=== PATIENT | male | born 1960 | race Two or more races ===

== ENCOUNTER 2025-05-09 09:31 | Outpatient (REF) | payer OTHER, SELFPAY ==
--- NOTE | ~2025-05-09 | XR_ITS ---
EXAMINATION: XR FOOT, RIGHT CLINICAL INFORMATION: M79.671 - Pain in right foot COMPARISON: None available. TECHNIQUE: AP, lateral, and oblique views of the right foot. FINDINGS: No fracture, dislocation, or suspicious bone lesion. There is normal alignment. Joint spaces appear normal. There is a normal plantar arch. The hindfoot and midfoot appear normal. Soft tissues demonstrate diffuse vascular calcifications. XR/XR foot RT min 3V IMPRESSION: 1. No acute bony abnormalities. 2. Diffuse soft tissue vascular calcifications. Electronically signed by: Nile Vences MD 05/09/2025 10:50 AM EDT
--- OUTSIDE RECORDS SUMMARY | 2025-05-09 12:07 | XMS_ITS | Clinical Summary ---
Author Organization [facility] Address [address] [place] [address] Care Team Providers Care Management Technician Name Role Phone Rosanne Corley PA-C Primary Care Provider Source Comments PLEASE NOTE, if this patient is a minor, it may be UNLAWFUL to discuss sensitive information that is contained in these records (such as FAMILY PLANNING, MENTAL HEALTH or SUBSTANCE ABUSE) with the minor patient's parent or other person without the patient's specific authorization.[facility] Allergies No known active allergies Medications diclofenac sodium (VOLTAREN) 1 % gelIndications:Nicolette sadie osteoarthritis involving multiple joints Apply 2 g topically 2 (two) times daily 100 g 3 11/22/19 23 Active ezetimibe (ZETIA) 10 mg tabletIndications: Coronary artery disease involving lower sioux coronary artery of lower si[place] heart without angina pectoris Take 10 mg by mouth once daily 02/28/20 23 Active alum-mag hydroxide-simeth (MYLANTA) 200-200-20 mg/5 mL suspension Take 10 mL by mouth every 6 (six) hours as needed for indigestion 400 mL 1 10/04/19 24 Active fluticasone furoate-vilanteroL (BREO ELLIPTA) 200-25 mcg/dose Inhale 1 Puff into the lungs daily 60 Each 3 10/04/19 24 Active clopidogreL (PLAVIX) 75 mg tabletIndications: Coronary artery disease involving lower sioux coronary artery of lower [place] heart without angina pectoris TAKE 1 TABLET BY MOUTH EVERY NIGHT AT BEDTIME 90 Tablet 3 02/08/20 24 Active lactulose (CHRONULAC) 10 gram/15 mL solutionIndication s:Other cirrhosis of liver Take 30 mL by mouth once daily 400 mL 4 03/15/20 24 Active sennosides-docusat e sodium (ROSA MARIA-COLACE) 8.6-50 mg per tabletIndications: Functional constipation Take 2 Tablets by mouth nightly at bedtime 180 Tablet 2 03/15/20 24 Active nitroglycerin (NITROSTAT) 0.4 mg SL tabletIndications: Coronary artery disease involving lower sioux coronary artery of lower si[place] heart without angina pectoris Place 1 Tablet under the tongue every 5 (five) minutes as needed for chest pain 100 Tablet 4 03/15/20 24 Active rosuvastatin (CRESTOR) 20 mg tabletIndications: Coronary artery disease involving lower sioux coronary artery of lower si[place] heart without angina pectoris,NSTEMI (non-ST elevated myocardial infarction) Take 1 Tablet by mouth nightly at bedtime 90 Tablet 3 03/15/20 24 Active furosemide (LASIX) 20 mg tabletIndications: Other cirrhosis of liver TAKE 1 TABLET BY MOUTH EVERY DAY 90 Tablet 2 06/12/20 24 Active metFORMIN (GLUCOPHAGE) 500 mg tabletIndications: Type 2 diabetes mellitus without complication, without long-term current use of insulin TAKE 1 TABLET BY MOUTH EVERY DAY WITH BREAKFAST 90 Tablet 1 08/02/19 25 Active metoprolol succinate XL (TOPROL-XL) 25 mg 24 hr tabletIndications: NSTEMI (non-ST elevated myocardial infarction),[place] ry artery disease involving lower sioux coronary artery of lower si[place] heart without angina pectoris TAKE 1 TABLET BY MOUTH EVERY DAY. DISCONTINUE COREG 90 Tablet 3 08/02/19 25 Active spironolactone (ALDACTONE) 25 mg tabletIndications: Other cirrhosis of liver,NSTEMI (non-ST elevated myocardial infarction) Take 1 Tablet by mouth once daily 90 Tablet 3 08/30/19 25 Active alcohol swabsIndications:T ype 2 diabetes mellitus without complication, without long-term current use of insulin Use qd, dx E11.9 50 Each 08/30/19 25 Active lancets (FREESTYLE LANCETS) 28 gaugeIndications:T ype 2 diabetes mellitus without complication, without long-term current use of insulin Freestyle lite lancets, use QD, dx E11.9 50 Each 08/30/19 25 Active blood sugar diagnostic stripsIndications: Type 2 diabetes mellitus without complication, without long-term current use of insulin 1 Each daily. Freestyle lite strips use QD, dx E11.9 50 Each 08/30/19 25 Active blood-glucose meter monitoring kitIndications:Typ e 2 diabetes mellitus without complication, without long-term current use of insulin 1 Each daily. Freestyle lite meter, disp 1, lifetime need, dx E11.9 1 Each 08/30/19 25 Active glipizide-metformi n (METAGLIP) 2.5-500 mg per tabletIndications: Type 2 diabetes mellitus without complication, without long-term current use of insulin Take 1 Tablet by mouth 2 (two) times daily before a meal 180 Tablet 2 09/06/19 25 Active amLODIPine (NORVASC) 5 mg tabletIndications: Essential hypertension Take 1 Tablet by mouth once daily 90 Tablet 3 09/06/19 25 Active triamcinolone (KENALOG) 0.1 % creamIndications:A topic dermatitis, unspecified type Apply topically daily 453 g 1 10/01/19 25 Active semaglutide (OZEMPIC) 0.25 mg or 0.5 mg (2 mg/3 mL) pen injectorIndication s:Type 2 diabetes mellitus without complication, without long-term current use of insulin Inject 0.5 mg into the skin once a week 9 mL 3 12/05/19 25 Active clobetasoL (TEMOVATE) 0.05 % creamIndications:A topic dermatitis, unspecified type Apply topically 2 (two) times daily 60 g 5 12/05/19 25 Active hydrOXYzine HCL (ATARAX) 25 mg tabletIndications: Atopic dermatitis, unspecified type Take 1 Tablet by mouth nightly at bedtime 90 Tablet 1 12/05/19 25 Active tamsulosin (FLOMAX) 0.4 mg 24 hr capsuleIndications :Benign prostatic hyperplasia with urinary frequency TAKE 1 CAPSULE BY MOUTH EVERY NIGHT AT BEDTIME 90 Capsule 2 12/25/19 25 Active pantoprazole (PROTONIX) 40 mg EC tabletIndications: Dyspepsia TAKE 1 TABLET BY MOUTH EVERY MORNING BEFORE BREAKFAST. DISCONTINUE OMEPRAZOLE 90 Tablet 2 12/25/19 25 Active folic acid (FOLVITE) 1 mg tablet TAKE 1 TABLET BY MOUTH EVERY DAY 90 Tablet 1 12/25/19 [address] Active aspirin [address] tabletIndications: Type 2 diabetes mellitus without complication, without long-term current use of insulin TAKE 1 TABLET BY MOUTH EVERY DAY 90 Tablet 2 12/25/19 25 Active loratadine (CLARITIN) 10 mg tabletIndications: Seasonal allergies TAKE 1 TABLET BY MOUTH EVERY DAY 90 Tablet 1 02/19/20 25 Active docusate sodium (COLACE) 100 mg capsuleIndications :Other cirrhosis of liver Take 2 Capsules by mouth nightly at bedtime. 180 Capsule 3 02/26/20 25 Active ketoconazole (NIZORAL) 2 % shampooIndications :Tinea versicolor Apply topically once daily as needed for itching. 120 mL 4 02/26/20 25 Active acetaminophen (TYLENOL) 500 mg tablet TAKE 2 TABLETS BY MOUTH TWICE DAILY 120 Tablet 2 03/19/20 25 Active Active Problems Problem Noted Date Diagnosed Date History of recent animal bite (raccoon) 09/202310/04/2023 Pulmonary nodules 11/2022, repeat 1 year 023 Overview (11/21/2022): Result type: CT Chest W/ Contrast Result date: May 09, 2017 4:15 EDT Result status: Auth (Verified) Result title: CT Chest W/ Contrast Performed by: Angelica GO, [facility] on May 09, 2017 9:11 EDT Verified by: Michael Gerard MD on May 09, 2017 9:16 EDT Encounter info: [id number], [facility] [place] , 05/08/2017 - 05/09/2017 * Final Report * Reason For Exam Pulmonary Lesion;Other: RESULT: CT Chest W/ Contrast CT Chest W/ Contrast, CT Abdomen and Pelvis W/ Contrast INDICATION: Left flank pain status post fall from stairs. CLINICAL QUESTION: Rib fractures. Splenic injury. TECHNIQUE: Spiral CT through the chest, abdomen and pelvis with intravenous contrast, formatted in 3 planes. 100 cc Isovue-300 IV contrast. The study was performed without oral contrast. Weight-based protocol using automatic tube modulation was used to optimize exposure parameters. CTDIvol Body: 10.00 mGy, DLP Body: 745 mGy*cm. COMPARISONS: None FINDINGS: LINES AND TUBES: None. TRACHEA and MAIN BRONCHI: Patent without evidence of tracheal or endobronchial lesion other than mucus strands in the RIGHT and LEFT main bronchi. LUNGS AND PLEURA: Mild to moderate linear dependent subpleural atelectasis bilateral upper and lower lobes posteriorly. Mild linear atelectasis in the lingula and RIGHT upper lobe inferiorly. No pneumothorax or pleural effusion. Several RIGHT renal pulmonary nodules as follows (axial series 208): 0.3 cm nodule in the posterior right upper lobe (75). 0.3 cm calcified granuloma with adjacent linear opacities present probably represent atelectasis or less likely spiculation posterior right upper lobe (71). 0.3 cm solid nodule in the inferior central right upper lobe (56). 0.3 cm nodule in the lateral minor fissure, likely an intrapulmonary lymph node (46). THORACIC AORTA: No evidence of aortic aneurysm. Ectasia measuring up to 3.7 cm in the ascending thoracic aorta. Mild calcified and noncalcified plaque. MEDIASTINUM and BALTAZAR: No mediastinal mass or hemorrhage. Increased number of normal-sized mediastinal lymph nodes. Borderline enlarged right hilar lymph node measuring 1.0cm in short axis. No axillary lymphadenopathy. Normal heart size. Moderate coronary artery calcifications No pericardial effusion. Mild diffuse esophageal wall thickening which could be due to esophagitis. Normal thyroid gland. DIAPHRAGM: Intact. LIVER: Diffuse hepatic steatosis. No focal lesion. Normal contour. GALLBLADDER: Phrygian cap noted. No wall thickening or calcified gallstones. BILE DUCTS: No biliary ductal dilation. SPLEEN: Normal in size and attenuation. 0.7 cm splenule anterior to the lower pole of the spleen. PANCREAS: 1.2 cm area of water attenuation in the uncinate process of the pancreas possibly IPMN. ADRENAL GLANDS: Normal. KIDNEYS AND URETERS: No calculi or hydronephrosis. No suspicious masses. Mild bilateral nonspecific perinephric fat stranding possibly the sequela of remote insults. BLADDER: Mild anterior bladder wall thickening measuring up to 0.8 cm (axial image 189, series 201). STOMACH, SMALL BOWEL AND LARGE BOWEL: No hiatal hernia. The stomach is underdistended. The small and large bowel loops are normal in caliber without evidence of obstruction or inflammation. APPENDIX: Normal. No inflammatory changes. PERITONEUM, OMENTUM AND MESENTERY: No ascites or pneumoperitoneum. Subtle haziness with accompanying increased number of small bowel mesenteric lymph nodes in the left mid abdomen (axial image 126 and coronal image 48). This is compatible with sclerosing mesenteritis. ABDOMINAL LYMPH NODES: No intra-abdominal or pelvic lymphadenopathy. ABDOMINAL BLOOD VESSELS: Moderate calcified and noncalcified plaque abdominal aorta and pelvic arteries. The IVC is unremarkable. The main portal vein is patent. CHEST AND ABDOMINAL WALL: Unremarkable. REPRODUCTIVE ORGANS: Unremarkable. BONES: Mildly displaced (one half of the width of the rib) fracture lateral left eighth rib (axial image 34). Mildly displaced (one half of the width of the rib) fracture posterior lateral left ninth rib (axial image 91). 1.1 cm sclerotic focus in the left iliac crest statistically a bone island in a patient without a history of malignancy. No fracture or subluxation of the thoracic and lumbar spine. The vertebral body heights are preserved. Mild degenerative changes of the spine noted. IMPRESSION: 1. Minimally displaced fractures of the left eighth and ninth rib. No evidence of pneumothorax or splenic injury. 2. Several RIGHT pulmonary nodules as described above. The largest measures up to 0.3 cm. If low risk for malignancy, no routine follow-up. If high risk, optional CT at 12 months. If unchanged, no further follow-up needed per Guidelines for Management of Incidental Pulmonary Nodules Detected on CT Images: From the Fleischner Society 2017. However three month follow-up with enhanced chest CT is recommended for follow- up of lymph nodes. 3. Asymmetric eccentric thickening anterior bladder wall measuring up to 0.7 cm. Urology consult recommended. 4. Diffuse hepatic steatosis. 5. Mild diffuse esophageal wall thickening which may represent esophagitis. Please correlate clinically and if necessary obtain GI evaluation. 6. Borderline enlarged right hilar lymph node, an increased number of normal size mediastinal lymph nodes, nonspecific. I would recommend follow-up in three months with enhanced chest CT. 7. Findings compatible with sclerosing mesenteritis. No need for follow-up. A [facility] message has been communicated via the [employer] Critical Result system on 05/09/2017 9:11 AM, Message ID [id number]. I have personally reviewed the images and I agree with this report. WSN: [id number] Signature Line Dictated By: Ty Dominguez MD Dictated Date/Time: 05/09/17 9:11 am Reviewed By: Michael Gerard MD Signed By: Michael Gerard MD Signed Date/Time: 05/09/17 9:16 am Transcribed By: STACY Transcribed Date/Time: 05/09/17 9:[address] Chest W/ Contrast This document has an image Other cirrhosis of liver 12/16/2020 Pancreas cyst 11/202012/16/2020 Overview (08/24/2021): Result type: MRI Abdomen W+W/O Contrast Result date: December 03, 2020 4:58 EDT Result status: Auth (Verified) Result title: MRI Abdomen W+W/O Contrast Performed by: Chris Mortensen MD on December 03, 2020 11:45 EDT Verified by: Reinaldo Alejandro MD on December 03, 2020 11:50 EDT Encounter info: [id number], [facility], Disch IP, 12/01/2020 - 12/04/2020 * Final Report * Reason For Exam Neoplasm: pancreas, suspected;Other: RESULT: MRI Abdomen W+W/O Contrast MRI Abdomen W+W/O Contrast Reason: Other:; Neoplasm: pancreas, suspected; Clinical Question(s): Tumor TECHNIQUE: Multiplanar, multisequence pre and post contrast MRI evaluation of the abdomen was performed. 20 cc of Dotarem gadolinium administered intravenously. COMPARISON: CT abdomen pelvis with contrast 12/01/2020. Right upper quadrant ultrasound 12/01/2020. Contrast CT abdomen 05/09/2017 reviewed. FINDINGS: The study is mildly to moderately limited by motion artifact, particularly on the arterial phase postcontrast sequence. LOWER THORAX: Trace right pleural effusion. Mild bibasilar atelectasis. No pericardial effusion. LIVER: Normal in size. Mildly lobulated contour which may related to underlying hepatic parenchymal disease. Normal parenchymal enhancement. No suspicious lesion. Mild hepatic steatosis as evidenced by loss of signal on opposed phase T1- weighted images. GALLBLADDER: Small volume pericholecystic fluid related to ascites. No gross wall thickening, but assessment limited by contracted state. BILE DUCTS: No biliary ductal dilatation. SPLEEN: Normal in size. 7mm T2 faintly hyperintense, T1 hypointense nonenhancing lesion in the posterior aspect of spleen likely reflects small cysts. PANCREAS: Normal in size. The lesion in question in the head of the pancreas is T2 hyperintense, T1 hypointense and does not enhance. It measures approximately 1.1 x 1.7 x 1.1 cm and appears to have some thin septations (series 8, images 31-32). There is an additional 0.6 x 0.6 cm T2 hyperintense lesion in the body of the pancreas that does not enhance. 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 No suspicious features. No pancreatic ductal dilatation. ADRENAL GLANDS: No nodules. KIDNEYS: No hydronephrosis. Kidneys enhance symmetrically. No suspicious mass. Mild bilateral perinephric stranding, nonspecific. STOMACH/UPPER GI TRACT: Stomach and visualized abdominal bowel normal in caliber. PERITONEUM AND RETROPERITONEUM: Small [id number] amount of perihepatic and perisplenic ascites. Mild mesenteric edema. LYMPH NODES: Enlarged celiac, and periportal lymph nodes measuring up to 1.5 cm in diameter (image 23 series 8). Few additional scattered prominent lymph nodes along the lesser curvature of stomach. These lymph nodes may be reactive but are nonspecific. VESSELS: Abdominal aorta is nonaneurysmal. Hepatic, portal and splenic veins patent. Visualized inferior vena cava unremarkable. ABDOMINAL WALL: Unremarkable. BONES: No acute findings. Mild anterior height loss at T12 and L1. IMPRESSION: 1. Lesion of concern in the head of the pancreas corresponds to a 1.1 x 1.7 x 1.1 nonenhancing cystic lesion. There is an additional smaller lesion measuring 0.6 x 0.8 cm in the body of the pancreas. Differential diagnosis includes non-neoplastic cysts, ectatic branch ducts, and low-grade neoplasms such as side-branch intraductal papillary mucinous neoplasms. A follow-up MRI pancreas is suggested in one year, per ACR Incidental Findings Committee white paper recommendations for management of incidental pancreatic cysts (JACR 2017;14:911-923). This follow-up examination can be performed without IV contrast (to decrease cost and shorten scan time for the patient), or without and with IV contrast according to the preference of the referring physician. 2. Mild celiac, periportal and peripancreatic lymphadenopathy of uncertain etiology. 3. Small-moderate abdominal ascites. 4. Hepatic steatosis. I have personally reviewed the images and I agree with this report. WSN: [id number] Ordering Physician: Lisette oWo Signature Line Dictated By: Chris Mortensen MD Dictated Date/Time: 12/03/20 11:45 a Reviewed By: Reinaldo Alejandro MD Signed By: Reinaldo Alejandro MD Signed Date/Time: 12/03/20 11:50 am Transcribed By: STACY Transcribed Date/Time: 12/03/20 11:45 am MRI Abdomen W+W/O Contrast This document has an image Lumbar disc disease 04/15/2020 NSTEMI (non-ST elevated myocardial infarction) 0 01/28/2020 Non morbid obesity 10/22/2018 Non-compliant patient 05/07/2018 Bladder wall thickening on C T 05/09/2017, negative cystoscopy 12/202005/30/2017 Overview (05/30/2017): Asymmetric eccentric thickening anterior bladder wall measuring up to 0.7 cm. Urology consult recommended. Result type: CT Chest W/ Contrast Result date: May 09, 2017 4:15 Result status: Auth (Verified) Result title: CT Chest W/ Contrast Performed by: Angelica GO, Ty on May 09, 2017 9:11 Verified by: Michael Gerard MD on May 09, 2017 9:16 Encounter info: [id number], [facility], Disch ES, 05/08/2017 - 05/09/2017 * Final Report * Reason For Exam Pulmonary Lesion;Other: RESULT: CT Chest W/ Contrast CT Chest W/ Contrast, CT Abdomen and Pelvis W/ Contrast INDICATION: Left flank pain status post fall from stairs. CLINICAL QUESTION: Rib fractures. Splenic injury. TECHNIQUE: Spiral CT through the chest, abdomen and pelvis with intravenous contrast, formatted in 3 planes. 100 cc Isovue-300 IV contrast. The study was performed without oral contrast. Weight-based protocol using automatic tube modulation was used to optimize exposure parameters. CTDIvol Body: 10.00 mGy, DLP Body: 745 mGy*cm. COMPARISONS: None FINDINGS: LINES AND TUBES: None. TRACHEA and MAIN BRONCHI: Patent without evidence of tracheal or endobronchial lesion other than mucus strands in the RIGHT and LEFT main bronchi. LUNGS AND PLEURA: Mild to moderate linear dependent subpleural atelectasis bilateral upper and lower lobes posteriorly. Mild linear atelectasis in the lingula and RIGHT upper lobe inferiorly. No pneumothorax or pleural effusion. Several RIGHT renal pulmonary nodules as follows (axial series 208): 0.3 cm nodule in the posterior right upper lobe (75). 0.3 cm calcified granuloma with adjacent linear opacities present probably represent atelectasis or less likely spiculation posterior right upper lobe (71). 0.3 cm solid nodule in the inferior central right upper lobe (56). 0.3 cm nodule in the lateral minor fissure, likely an intrapulmonary lymph node (46). THORACIC AORTA: No evidence of aortic aneurysm. Ectasia measuring up to 3.7 cm in the ascending thoracic aorta. Mild calcified and noncalcified plaque. MEDIASTINUM and BALTAZAR: No mediastinal mass or hemorrhage. Increased number of normal-sized mediastinal lymph nodes. Borderline enlarged right hilar lymph node measuring 1.0cm in short axis. No axillary lymphadenopathy. Normal heart size. Moderate coronary artery calcifications No pericardial effusion. Mild diffuse esophageal wall thickening which could be due to esophagitis. Normal thyroid gland. DIAPHRAGM: Intact. LIVER: Diffuse hepatic steatosis. No focal lesion. Normal contour. GALLBLADDER: Phrygian cap noted. No wall thickening or calcified gallstones. BILE DUCTS: No biliary ductal dilation. SPLEEN: Normal in size and attenuation. 0.7 cm splenule anterior to the lower pole of the spleen. PANCREAS: 1.2 cm area of water attenuation in the uncinate process of the pancreas possibly IPMN. ADRENAL GLANDS: Normal. KIDNEYS AND URETERS: No calculi or hydronephrosis. No suspicious masses. Mild bilateral nonspecific perinephric fat stranding possibly the sequela of remote insults. BLADDER: Mild anterior bladder wall thickening measuring up to 0.8 cm (axial image 189, series 201). STOMACH, SMALL BOWEL AND LARGE BOWEL: No hiatal hernia. The stomach is underdistended. The small and large bowel loops are normal in caliber without evidence of obstruction or inflammation. APPENDIX: Normal. No inflammatory changes. PERITONEUM, OMENTUM AND MESENTERY: No ascites or pneumoperitoneum. Subtle haziness with accompanying increased number of small bowel mesenteric lymph nodes in the left mid abdomen (axial image 126 and coronal image 48). This is compatible with sclerosing mesenteritis. ABDOMINAL LYMPH NODES: No intra-abdominal or pelvic lymphadenopathy. ABDOMINAL BLOOD VESSELS: Moderate calcified and noncalcified plaque abdominal aorta and pelvic arteries. The IVC is unremarkable. The main portal vein is patent. CHEST AND ABDOMINAL WALL: Unremarkable. REPRODUCTIVE ORGANS: Unremarkable. BONES: Mildly displaced (one half of the width of the rib) fracture lateral left eighth rib (axial image 34). Mildly displaced (one half of the width of the rib) fracture posterior lateral left ninth rib (axial image 91). 1.1 cm sclerotic focus in the left iliac crest statistically a bone island in a patient without a history of malignancy. No fracture or subluxation of the thoracic and lumbar spine. The vertebral body heights are preserved. Mild degenerative changes of the spine noted. IMPRESSION: 1. Minimally displaced fractures of the left eighth and ninth rib. No evidence of pneumothorax or splenic injury. 2. Several RIGHT pulmonary nodules as described above. The largest measures up to 0.3 cm. If low risk for malignancy, no routine follow-up. If high risk, optional CT at 12 months. If unchanged, no further follow-up needed per Guidelines for Management of Incidental Pulmonary Nodules Detected on CT Images: From the Fleischner Society 2017. However three month follow-up with enhanced chest CT is recommended for follow- up of lymph nodes. 3. Asymmetric eccentric thickening anterior bladder wall measuring up to 0.7 cm. Urology consult recommended. 4. Diffuse hepatic steatosis. 5. Mild diffuse esophageal wall thickening which may represent esophagitis. Please correlate clinically and if necessary obtain GI evaluation. 6. Borderline enlarged right hilar lymph node, an increased number of normal size mediastinal lymph nodes, nonspecific. I would recommend follow-up in three months with enhanced chest CT. 7. Findings compatible with sclerosing mesenteritis. No need for follow-up. A [facility] message has been communicated via the [employer] Critical Result system on 05/09/2017 9:11 AM, Message ID [id number]. I have personally reviewed the images and I agree with this report. WSN: [id number] Signature Line Dictated By: Ty Dominguez MD Dictated Date/Time: 05/09/17 9:11 am Reviewed By: Michael Gerard MD Signed By: Michael Gerard MD Signed Date/Time: 05/09/17 9:16 am Transcribed By: STACY Transcribed Date/Time: 05/09/17 9:[address] Chest W/ Contrast This document has an image History of CT scan of chest 05/09/2017: several pulmonary nodules 05/09/2017 Overview (05/10/2017): Result type: CT Chest W/ Contrast Result date: May 09, 2017 4:15 Result status: Auth (Verified) Result title: CT Chest W/ Contrast Performed by: Ty Dominguez MD on May 09, 2017 9:11 Verified by: Michael Gerard MD on May 09, 2017 9:16 Encounter info: [id number], [facility] [place] , 05/08/2017 - 05/09/2017 * Final Report * Reason For Exam Pulmonary Lesion;Other: RESULT: CT Chest W/ Contrast CT Chest W/ Contrast, CT Abdomen and Pelvis W/ Contrast INDICATION: Left flank pain status post fall from stairs. CLINICAL QUESTION: Rib fractures. Splenic injury. TECHNIQUE: Spiral CT through the chest, abdomen and pelvis with intravenous contrast, formatted in 3 planes. 100 cc Isovue-300 IV contrast. The study was performed without oral contrast. Weight-based protocol using automatic tube modulation was used to optimize exposure parameters. CTDIvol Body: 10.00 mGy, DLP Body: 745 mGy*cm. COMPARISONS: None FINDINGS: LINES AND TUBES: None. TRACHEA and MAIN BRONCHI: Patent without evidence of tracheal or endobronchial lesion other than mucus strands in the RIGHT and LEFT main bronchi. LUNGS AND PLEURA: Mild to moderate linear dependent subpleural atelectasis bilateral upper and lower lobes posteriorly. Mild linear atelectasis in the lingula and RIGHT upper lobe inferiorly. No pneumothorax or pleural effusion. Several RIGHT renal pulmonary nodules as follows (axial series 208): 0.3 cm nodule in the posterior right upper lobe (75). 0.3 cm calcified granuloma with adjacent linear opacities present probably represent atelectasis or less likely spiculation posterior right upper lobe (71). 0.3 cm solid nodule in the inferior central right upper lobe (56). 0.3 cm nodule in the lateral minor fissure, likely an intrapulmonary lymph node (46). THORACIC AORTA: No evidence of aortic aneurysm. Ectasia measuring up to 3.7 cm in the ascending thoracic aorta. Mild calcified and noncalcified plaque. MEDIASTINUM and BALTAZAR: No mediastinal mass or hemorrhage. Increased number of normal-sized mediastinal lymph nodes. Borderline enlarged right hilar lymph node measuring 1.0cm in short axis. No axillary lymphadenopathy. Normal heart size. Moderate coronary artery calcifications No pericardial effusion. Mild diffuse esophageal wall thickening which could be due to esophagitis. Normal thyroid gland. DIAPHRAGM: Intact. LIVER: Diffuse hepatic steatosis. No focal lesion. Normal contour. GALLBLADDER: Phrygian cap noted. No wall thickening or calcified gallstones. BILE DUCTS: No biliary ductal dilation. SPLEEN: Normal in size and attenuation. 0.7 cm splenule anterior to the lower pole of the spleen. PANCREAS: 1.2 cm area of water attenuation in the uncinate process of the pancreas possibly IPMN. ADRENAL GLANDS: Normal. KIDNEYS AND URETERS: No calculi or hydronephrosis. No suspicious masses. Mild bilateral nonspecific perinephric fat stranding possibly the sequela of remote insults. BLADDER: Mild anterior bladder wall thickening measuring up to 0.8 cm (axial image 189, series 201). STOMACH, SMALL BOWEL AND LARGE BOWEL: No hiatal hernia. The stomach is underdistended. The small and large bowel loops are normal in caliber without evidence of obstruction or inflammation. APPENDIX: Normal. No inflammatory changes. PERITONEUM, OMENTUM AND MESENTERY: No ascites or pneumoperitoneum. Subtle haziness with accompanying increased number of small bowel mesenteric lymph nodes in the left mid abdomen (axial image 126 and coronal image 48). This is compatible with sclerosing mesenteritis. ABDOMINAL LYMPH NODES: No intra-abdominal or pelvic lymphadenopathy. ABDOMINAL BLOOD VESSELS: Moderate calcified and noncalcified plaque abdominal aorta and pelvic arteries. The IVC is unremarkable. The main portal vein is patent. CHEST AND ABDOMINAL WALL: Unremarkable. REPRODUCTIVE ORGANS: Unremarkable. BONES: Mildly displaced (one half of the width of the rib) fracture lateral left eighth rib (axial image 34). Mildly displaced (one half of the width of the rib) fracture posterior lateral left ninth rib (axial image 91). 1.1 cm sclerotic focus in the left iliac crest statistically a bone island in a patient without a history of malignancy. No fracture or subluxation of the thoracic and lumbar spine. The vertebral body heights are preserved. Mild degenerative changes of the spine noted. IMPRESSION: 1. Minimally displaced fractures of the left eighth and ninth rib. No evidence of pneumothorax or splenic injury. 2. Several RIGHT pulmonary nodules as described above. The largest measures up to 0.3 cm. If low risk for malignancy, no routine follow-up. If high risk, optional CT at 12 months. If unchanged, no further follow-up needed per Guidelines for Management of Incidental Pulmonary Nodules Detected on CT Images: From the Fleischner Society 2017. However three month follow-up with enhanced chest CT is recommended for follow- up of lymph nodes. 3. Asymmetric eccentric thickening anterior bladder wall measuring up to 0.7 cm. Urology consult recommended. 4. Diffuse hepatic steatosis. 5. Mild diffuse esophageal wall thickening which may represent esophagitis. Please correlate clinically and if necessary obtain GI evaluation. 6. Borderline enlarged right hilar lymph node, an increased number of normal size mediastinal lymph nodes, nonspecific. I would recommend follow-up in three months with enhanced chest CT. 7. Findings compatible with sclerosing mesenteritis. No need for follow-up. A [facility] message has been communicated via the [employer] Critical Result system on 05/09/2017 9:11 AM, Message ID [id number]. I have personally reviewed the images and I agree with this report. WSN: [id number] Signature Line Dictated By: Ty Dominguez MD Dictated Date/Time: 05/09/17 9:11 am Reviewed By: Michael Gerard MD Signed By: Michael Gerard MD Signed Date/Time: 05/09/17 9:16 am Transcribed By: STACY Transcribed Date/Time: 05/09/17 9:[address] Chest W/ Contrast This document has an image Chronic anticoagulation 02/24/2017 Overview (02/24/2017): 02/24/2017 6 mg daily Osteoarthritis 03/31/2016 Anal fissure, recurrent pilonidal cyst 6 Anxiety and depression 12/29/2015 Overview (08/24/2021): On follow up with [facility], awaiting med appt Elevated LFTs 12/29/2015 Type 2 diabetes mellitus wit hout complication, without long-term current use of insulin ([facility]) 09/25/2015 Essential hypertension 09/25/2015 Mild concentric left ventric ular hypertrophy (LVH) 10/23/2014 11/07/2014 Overview (09/25/2015): NM Myocard Perf EF - 09/03/15 - HISTORY: Patient with unstable angina. History of coronary artery disease. Prior myocardial infarction. Prior cardiac catheterization with angioplasty and stenting (left anterior descending coronary artery). Ongoing risk factors for coronary artery disease including hypertension, smoking and elevated cholesterol. Technique: Patient exercised following a modified Eric protocol for 14 minutes and 14 seconds achieving heart rate elevation from 78 beats per minute up to 139 beats per minute, 84% age-adjusted predicted maximum. Exercise was stopped due to fatigue. SPECT images obtained at peak stress following injection of 20.0 mCi Tc 99m myoview. Rest images obtained following injection of 43.5 mCi Tc 99m myoview. Comparison: Myocardial stress study 12/23/2012. FINDINGS: SPECT images in the short, vertical and horizontal axes show distribution of tracer throughout the left ventricular myocardium. Large apical defect is unchanged between stress and rest. Mild difference in septal wall activity inferiorly, greater activity on rest images. Improved activity within the inferior wall on stress images. Given this shift in activity, suspect difference in activity is artifactual. No sizable transient defect Dynamic images show akinesis within the apex, zone of apparent infarction. Otherwise normal left ventricular wall motion. End diastolic volume calculated at 118 cc. End systolic volume 75 cc. Calculated LVEF 37%. IMPRESSION: Large apical TX with no evidence of superimposed ischemia. No convincing evidence of left ventricular ischemia. Apical hypokinesis. LVEF 37% [id number] Dictating Physician: JACQUES ROBLES MD Electronically Signed by: JACQUES ROBLES MD Dic Date/Time: 09/03/15 1611 Sign date/Time: 09/03/15 1644 Result type: Echocardiogram - Complete Result date: 23 October 2014 14:40 Result status: Modified Result title: Echo Complete Performed by: Goldy Ann MD on 23 October 2014 14:40 Verified by: Goldy Ann MD on 23 October 2014 14:40 Encounter info: [id number], [facility], Disch IP, 10/21/2014 - 10/24/2014 Contributor system: [email or web address] * Final Report * Echo Complete-Doppler, Colorflow, M-Mode Transthoracic Echocardiography Report (TTE) Patient Demographics Patient Name KIAN BECKMAN Date of Study 10/23/2014 Corporate Gender Male Facility Race Ethnicity Date of 1960 Height: 69 inches Age 54 year(s) Weight: 190.92 pounds Accession Number [id number] BSA: 2.03 m2 Room Number M510 BMI: 28.19 kg/m2 Referring Physician Manfred Rodríguez MD Interpreting Goldy Ann MD Physician [employer] Sandra Shafer [facility] Indications LV thrombus and Chest pain. Clinical History Hypertension TX 2005/Stent Dyslipidemia Tobacco use Study Data Type of Study TTE procedure:Echo Complete-(Doppler, Colorflow) with Contrast. Procedure Information:Definity was administered by RN . Study Date10/23/2014 Start Time: 02:40 PM Study Location[place] [facility] [place] Study Status: Echo lab Patient Status: Routine Technical Quality: Adequate Blood Pressure:105/70 mmHg EKG: Normal sinus rhythm HR: 59 bpm Contrast Medium: Definity to R/O clot. Amount - 2 ml Allergies - No known allergies. 2D Measurements LV Diastolic Dimension: 5.1 cm LV Systolic Dimension: 3.47 cm LV Septum Diastolic: 1.24 cm LV PW Diastolic: 1.27 cm AO Root Dimension: 2.9 cm LA Dimension: 4 cm LA ESV (BP):45 ml LVOT Stroke Volume: 80 ml LA ESV Index: 22 ml/m2 LVOT: 2.2 cm Doppler Measurements AV Peak Velocity: 110 cm/s MV Peak E-Wave: 65.2 cm/s AV Peak Gradient: 4.84 mmHg MV Peak A-Wave: 68.6 cm/s MV E/A Ratio: 0.95 LVOT Peak Velocity: 106 cm/s LVOT VTI21 ml MV Deceleration Time: 190 msec E' Septal Velocity: 5.26 cm/s PV Peak Velocity: 85.5 cm/s E' Lateral Velocity: 6.53 cm/s PV Peak Gradient: 2.92 mmHg E/Med E':12.81521 E/Lat E':9.208665 Cardiac Anatomy Left Ventricle/Interventricular Septum The left ventricular size is normal. There is mild concentric left ventricular hypertrophy. The LV systolic function is mildly reduced . The left ventricular ejection fraction is 45-50 %. The mid to distal anteroseptal, apical wall is akinetic . The distal inferoseptal, inferior wall is akinetic . There is an apical thrombus present. The thrombus measures 16 x 9 mm.Left ventricular filling pressures are indeterminate. Left Atrium/Interatrial Septum The left atrium is normal in size. Aortic Valve The aortic valve is trileaflet . There is no significant aortic regurgitation. There is no significant aortic stenosis. Mitral Valve The mitral valve opening is normal. There is trivial mitral regurgitation. Aorta The ascending aorta and aortic root are normal in size. Right Ventricle The right ventricle is normal in size and function. Right Atrium The right atrium is normal in size. Pulmonic Valve The pulmonic valve velocity is normal. Tricuspid Valve The tricuspid valve appears normal . There is trace tricuspid valve regurgitation. Pumonary Artery An accurate pulmonary artery pressure could not be obtained. Venous Structures The inferior vena cava appears normal. Pericardium/Extracardiac There is no significant pericardial effusion. Summary The left ventricular size is normal. There is mild concentric left ventricular hypertrophy. The LV systolic function is mildly reduced . The left ventricular ejection fraction is 45-50 %. The mid to distal anteroseptal, apical wall is akinetic . The distal inferoseptal, inferior wall is akinetic . There is an apical thrombus present. The thrombus measures 16 x 9 mm. The right ventricle is normal in size and function. Comparison Comparison is made to the study of September 23, 2004. Apical thrombus is seen. Signature Echo Complete This document has an image H/O colonoscopy 05/201211/07/2014 Overview (08/24/2021): Result type: Special Procedure/Gastro Note Result date: 29 May 2012 8:52 Result status: Auth (Verified) Result title: 7B Encounter info: [id number], [facility] [facility]ch A[facility], 05/29/2012 - 05/29/2012 Contributor system: [place] [email or web address] * Final Report * 7B Colonoscopy and EGD Report Endoscopist(s): Shamir Shore MD Date: Tuesday, May 29, 2012 Ref. Phys.: DOMINGO BROWN MD Patient: KIAN BECKMAN Assisting Nurse(s)/ Other Personnel: Alexa Cuadra RN (RN) Esteban Hale senior wind energy consultant (grey roll man) Colonoscopy Instrument: [employer]-[id number] ([id number]) Date: 1960 (51 years) EGD Instrument: GIF [id number] ([id number]) ASA Class: P1 C Account: [id number] Medications: Midazolam 6mg Meperidine 100mg Indications: Screening Colonoscopy GERD, reflux Colonoscopy and EGD: The procedure, indications, preparation and potential complications were explained to the patient, who indicated his understanding and signed the corresponding consent forms. A physical exam was performed. The patient was administered moderate sedation. The patient tolerated the procedure well. The procedure was not difficult. The quality of the preparation was good. There were no complications. EGD overview: An endoscope was introduced through the mouth and advanced under direct visualization until the second part of the duodenum was reached. Retroflexion done in the stomach. Vocal cords were visualized. EGD Findings: Esophagus: Mucosa: 3mm island salmon pink epithelium of the mucosa was noted in the gastroesophageal junction. 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 Cold forceps biopsies were performed for histology. Stomach: Mucosa: Erythema and congestion of the mucosa were noted in the antrum. These findings are compatible with gastritis. Cold forceps biopsies were performed for histology. Duodenum: Mucosa: Normal mucosa was noted. EGD Impressions: 3mm island salmon pink epithelium in the gastroesophageal junction compatible with Vargas's esophagus (biopsy) Erythema and congestion in the antrum compatible with gastritis (biopsy) Normal mucosa in the duodenum Colonoscopy overview: The digital exam was normal. A colonoscope was introduced through the rectum and advanced under direct visualization until the cecum was reached. The appendiceal orifice and ileo-cecal valve were identified. Careful visualization of the colon was performed as the colonoscope was withdrawn. The colonoscope was retroflexed within the rectum. The patient tolerated the procedure well. Colonoscopy Findings: Protruding Lesions A single sessile 4 mm polyp of benign appearance was found in the proximal rectum. A single-piece polypectomy was performed using a cold snare. The polyp was completely removed. Colonoscopy Impressions: Up to cecum, good prepration. Polyp in the proximal rectum (polypectomy) Recommendations: Follow up on your biopsy results Shamir Shore MD Case documentation started on 05/29/2012 8:05:00 AM Patient: KIAN BECKMAN ([id number] ) Tobacco use 11/07/2014 Left ventricular apical thrombus 10/2014-- on Co umadin 10/30/2014 Overview (10/30/2014): Result type: Discharge/Transfer Note Hospital Result date: 24 October 2014 10:59 Result status: Auth (Verified) Result title: Hospitalist Discharge Summary Performed by: Riley Wall MD on 24 October 2014 11:24 Verified by: Riley Wall MD on 24 October 2014 11:24 Encounter info: [id number], [facility] [facility]ch IP, 10/21/2014 - 10/24/2014 Hospitalist Discharge Summary Patient: KIAN BECKMAN Age: 54 years Sex: Male : 1960 Associated Diagnoses: None Author: Riley Wall MD Discharge Information Admission Date: 10/21/2014 Discharge Date 10/24/2014 Primary Care Provider Yari Tijerina Principal Discharge Diagnosis NSTEMI (non-ST elevated myocardial infarction). Secondary Discharge Diagnoses Left ventricular apical thrombus. Hypertension. Medications (Selected) Prescriptions Prescribed atorvastatin 80 mg oral tablet: = 80 mg, By Mouth, Daily at bedtime, # 30 tablet, 0 Refills, Maintenance, 10/24/14 10:56:54, Tablet warfarin 5 mg oral tablet: = 5 mg, By Mouth, Daily, # 30 tablet, 0 Refills, Maintenance, 10/24/14 10:52:07, Tablet Documented Medications Documented acetaminophen 325 mg oral tablet: = 650 mg, By Mouth, Every 4 hours, PRN Pain , Mild, 0 Refills, Maintenance, 10/24/14 10:51:25, Tablet aspirin 81 mg oral tablet: 1 tablet = 81 mg, By Mouth, Daily, 0 Refills, Maintenance lisinopril 40 mg oral tablet: 1 tablet = 40 mg, By Mouth, Daily, # 30 tablet, 0 Refills, Maintenance, 10/21/14 14:33:58, Tablet metoprolol 50 mg oral tablet: 1 tablet = 50 mg, By Mouth, 2 times a day, 0 Refills, Maintenance. Medications Started WARFARIN, ATORVASTATIN Medications Discontinued SIMVASTATIN 40 Hospital Course HPI PER H&P: History of Present Illness [employer] services used for interview patient and records from [facility] reviewed (no discharge summary available, RN spoke with [facility] at 1400). Mr. Beckman is a 54 year old man with history of CAD s/p LAD stent in 2004, HTN, tobacco dependance and HLD who was transferred from [facility] to [facility] with NSTEMI for cardiac catheterization. He was admitted to [facility] on 10/20/14 with complaints of chest pain. He developed chest pain with radiation to his shoulders and back, worse with exertion, no associated dyspnea, diaphoresis or nausea around midnight on 10/20. He states it was similar to previous TX. During his stay at [facility], he ruled in for NSTEMI with troponin 3.85. He was started on Heparin drip, given plavix load, aspirin, BB, full dose statin and cardiology consulted. cardiology made arrangements for transfer for cardiac catheterization. Cardiac catheterization performed by Dr Asher on 10/21/14 revealed no evidence of LAD stent restenosis, diffuse but non-critical disease, EF 35-40% with left apical thrombus. He denies any complaints, feeling well, denies any recent URI symptoms, fevers, chills, dyspnea, cough, abdominal pain, n/v/d/c, blood in the urine or stools. Prior to his hospitalization, he has had intermittent exertional chest pain symptoms that are relieved with rest. Denied any orthopnea, LE edema/pain. He was not taking his medications faithfully. Hospital Course Mr. Beckman is a 54 year old man with history of CAD s/p LAD stent in 2004, HTN and HLD who was transferred from [facility] to [facility] with NSTEMI for cardiac catheterization. Cardiac catheterization perfomed by Dr Asher on 10/21/14 revealed no evidence of LAD stent restenosis, diffuse but non-critical disease, EF 35-40% with left apical thrombus. NSTEMI/CAD -- Misha has history of CAD and LAD stent with poor medication compliance/follow up, presented with chest pain and positive troponins with EKG revealing lateral TWI. Cardiac cath with diffuse non-critical disease but revealing likely apical thrombus. - Continue aspirin, statin, BB. Left Apical Thrombus- --Found to have apical thrombus on cardiac cath. - Repeat echo confirmed old thrombus -- Started on IV Heparin -- Warfarin 5 mg daily. - Discussed with Dr. Asher -- OK to discharge home on PO Warfarin without bridge. -- Monitor INR through PCP Office Chronic Problems HTN: Restart home metoprolol and lisinopril 40mg daily . HLD: Lipid panel from [facility] with LDL 171, will placed on full dose atorvastatin 80mg daily Tobacco Dependance: Discussed smoking cessation, ordered nicotine patch Code status: Full Results Laboratory : LABORATORY 10/24/2014 3:36 WBC 10.0 k/mm3 Hgb 14.3 Gm/dL Hct 42.8 % Platelet Count 166 k/mm3 RBC 4.54 m/mm3 L MCV 94.3 femtoliters H MCH 31.5 pg MCHC 33.4 % MPV 10.5 femtoliters Nucleated RBC (Automated) 0.0 #/100 WBC'S RDW-SD 54.8 femtoliters H Abs. NRBC 0.0 k/mm3 INR 1.3 H Protime (PT) 13.0 seconds H APTT 28.8 seconds Hold Blue SPECIMEN DISCARDED AFTER 4 HOURS. (Modified) Sodium 136 mmol/L Potassium 4.0 mmol/L Chloride 102 mmol/L Bicarbonate Level 20 mmol/L L Anion Gap 14 BUN 12 mg/dL Creatinine-Blood 0.8 mg/dL Estimated GFR, Non >60 ML/MIN/1.73 M2 Estimated GFR, >60 ML/MIN/1.73 M2 Magnesium 1.7 mEq/L 10/23/2014 19:10 APTT 41.4 seconds H 10/23/2014 16:36 APTT 44.7 seconds H 10/23/2014 6:03 WBC 12.5 k/mm3 H Hgb 14.8 Gm/dL Hct 43.7 % Platelet Count 172 k/mm3 RBC 4.75 m/mm3 MCV 92.0 femtoliters MCH 31.2 pg MCHC 33.9 % MPV 11.5 femtoliters Abs. Neut 7.5 k/mm3 H Abs. Lymph 3.3 k/mm3 H Abs. [place] 1.1 k/mm3 Abs. Eo 0.6 k/mm3 H Abs. Baso 0.1 k/mm3 Neut % 58.9 % Lymph % 26.1 % [place] % 8.8 % Eos % 4.5 % Baso % 0.7 % Nucleated RBC (Automated) 0.0 #/100 WBC'S RDW-SD 53.3 femtoliters H Abs. NRBC 0.0 k/mm3 Imm Gran 1.0 % H Abs. Imm Gran 0.1 k/mm3 INR 1.1 Protime (PT) 11.6 seconds APTT 44.4 seconds H Sodium 137 mmol/L Potassium 4.2 mmol/L Chloride 102 mmol/L Bicarbonate Level 22 mmol/L Anion Gap 13 BUN 10 mg/dL Creatinine-Blood 0.7 mg/dL Estimated GFR, Non >60 ML/MIN/1.73 M2 Estimated GFR, >60 ML/MIN/1.73 M2 10/22/2014 23:32 APTT 41.6 seconds H 10/22/2014 14:46 APTT 40.1 seconds H 10/22/2014 5:57 WBC 11.0 k/mm3 Hgb 14.8 Gm/dL Hct 42.6 % Platelet Count 172 k/mm3 RBC 4.65 m/mm3 L MCV 91.6 femtoliters MCH 31.8 pg MCHC 34.7 % MPV 11.0 femtoliters Nucleated RBC (Automated) 0.0 #/100 WBC'S RDW-SD 51.8 femtoliters H Abs. NRBC 0.0 k/mm3 INR 1.0 Protime (PT) 10.6 seconds APTT 39.4 seconds H Sodium 136 mmol/L Potassium 3.9 mmol/L Chloride 103 mmol/L Bicarbonate Level 21 mmol/L L Anion Gap 12 BUN 6 mg/dL Creatinine-Blood 0.8 mg/dL Estimated GFR, Non >60 ML/MIN/1.73 M2 Estimated GFR, >60 ML/MIN/1.73 M2 . Discharge Plan Diet/Activity/Patient Education/Follow Up Patient was given the following educational materials: About Coumadin (Warfarin)(Puerto [place]ican). Follow Up with: Yari LUI Within 3 to 5 days; outpt cardiology f/u november 06 4 pm - [address] [place] [address] dr soy olivier 410; INR THROUGH PCP OFFICE IN 2 DAYS. Discharge Disposition Discharge: home. Code Status: Full Code. Discharge Condition: fair, compared to admission improved. 35 minutes spent on discharge CAD (coronary artery disease) 12/05/2013 Encounters Date Type Department Care Team Description 02/25/2025 2:40 PM EDT Office Visit [facility] [address] [place] [address] Rosnane Corley PA-C from Last 3 Months Social History Tobacco Use Types Packs/Day Years Used Date Smoking Tobacco: Every Day Cigarettes Passive Smoke Exposure: Never Smokeless Tobacco: Never Tobacco Cessation:Ready to Q uit: No; Counseling Given: Yes Alcohol Use Standard Drinks/Week Comments Yes 0 (1 standard drink = 0.6 oz pur e alcohol) Social Connections Answer Date Recorded How often do you feel lonely or isolated from th ose around you? 1 08/30/2024 Financial Resource Strain Answer Date R ecorded Hard to pay for: Food 1 08/30/2024 Stress Answer Date Recorded Do you feel these kinds of stress these days? 1 08/30/2024 Physical Activity Answer Date Recorded Physical Activity 0 03/16/2019 Food Insecurity Answer Date Recorded Hard to pay for: Food 1 08/30/2024 Transportation Needs Answer Date Record ed Hard to pay for: Transportation 1 08/30/2024 Housing Stability Answer Date Recorded Hard to pay for: Rent/Mortgage payment 1 08/30/2024 Safety and Environment Answer Date Gopi rded Safety 0 07/12/2023 Utilities Answer Date Recorded Hard to pay for: Utilities 1 08/30 Employment Answer Date Recorded Employment 0 03/16/2019 Sex and Gender Information Value Date Recorded Sex Assigned at Male 05/02/2017 7:05 AM PDT Legal Sex Male 11:36 AM PDT Gender Identity Male 05/02/2017 7:05 AM PDT Sexual Orientation Straight 05/02/2017 7: 05 AM PDT Last Filed Vital Signs Vital Sign Reading Time Taken Comments Blood Pressure 114/72 02/25/2025 2:20 PM EDT Pulse 93 02/25/2025 2:20 PM EDT Temperature 36.9 C (98.4 F) 02/25/2025 2:20 PM EDT Respiratory Rate 16 02/25/2025 2:20 PM EDT Oxygen Saturation 96% 02/25/2025 2:20 PM EDT Inhaled Oxygen Concentration - - Weight 93.9 kg (207 lb) 02/25/2025 2:20 PM EDT Height 167.6 cm (5' 6 ) 02/25/2025 2:20 PM EDT Body Mass Index 33.41 02/25/2025 2:20 PM EDT Plan of Treatment Health Maintenance Due Date Last Done Comments Anxiety Screening 1960 Dental Examination 1960 Retinopathy Screening 1972 Medicare Annual Wellness Visit 1977 Imm-Pneumococcal 50+ (1 of 2 - PCV) 1978 CT Colonography 2004 Fecal DNA 2004 Flexible Sigmoidoscopy 2004 Imm-Zoster, Recombinant (1 of 2) 2009 FIT/gFOBT 06/04/2013 06/04/2012 Imm-Hepatitis B (1 of 3 - Risk 3-dose series) 2019 Abdominal Aortic Aneurysm Screening 2024 Depression Monitoring 03/06/2025 12/04/2024 , 08/30/2024, 03/15/2024, Additional history exists [id number] ( season) 2025 Imm-Influenza (#1) 2025 Hepatocellular Carcinoma Screening (HCC) 04/02/2025 09/30/2024 (Managed by Outside Provider), 01/22/2024, 09/10/2023, Additional history exists Hemoglobin A1c 06/06/2025 12/04/2024, 08/24, 04/11/2023, Additional history exists Lipid Screening 09/03/2025 09/03/2024, 03/24, 04/11/2023, Additional history exists Falls Prevention 09/30/2025 09/30/2024 (Man aged by Outside Provider) Imm-Hepatitis A (1 of 2 - Risk 2-dose series) 09/30/2025 Postponed from 1978 (Patient postponement) Diabetes Foot Exam 12/04/2025 12/04/2024, 0 09/06/2024, 04/12/2023, Additional history exists Serum Creatinine 12/04/2025 12/04/2024, 05/2025, 06/25/2024, Additional history exists Urine Albumin Creatinine Ratio Screening 12/04/2025 12/04/2024, 04/11/2023, 02/08/2022, Additional history exists Tobacco Cessation Counseling (#1) 02/25/2026 EGD (Upper Endoscopy) 10/01/2027 09/30/2024 (Managed by Outside Provider), 05/29/2012 Colonoscopy 07/20/2028 07/20/2023, 05/29/2012 Colorectal Cancer Screening 07/20/2028 Imm-DTaP/Tdap/Td (2 - Td or Tdap) 09/13/2033 09/13/2023 HIV Screening Completed 05/07/2018 Hepatitis C Screening Completed 09/16/2019 , 05/07/2018, 12/29/2015 Alcohol and Drug Screen Completed 12/05/19, 08/30/2024, 03/15/2024, Additional history exists Procedures Procedure Name Priority Date/Time Associated Diagnosis Comments IMAGING SCANNED DOCUMENT 04/24/2025 3:00 AM EDT COMPREHENSIVE METABOLIC PANEL Routine 12/04/2024 10:17 AM EDT Routine general medical examination at a [facility] care facility Coronary artery disease involving lower [place] coronary artery of lower [place] heart without angina pectoris Type 2 diabetes mellitus without complication, without long-term current use of insulin ([facility]) Tobacco use MICROALBUMIN/CREATININ E RATIO, URINE, RANDOM Routine 12/04/2024 10:17 AM EDT Routine general medical examination at a [facility] care facility Coronary artery disease involving lower [place] coronary artery of lower [place] heart without angina pectoris Type 2 diabetes mellitus without complication, without long-term current use of insulin ([facility]) Tobacco use HEMOGLOBIN GLYCOSYLATED A1C Routine 12/04/2024 10:17 AM EDT Routine general medical examination at a [facility] care facility Coronary artery disease involving lower [place] coronary artery of lower [place] heart without angina pectoris Type 2 diabetes mellitus without complication, without long-term current use of insulin ([facility]) Tobacco use LIPID PANEL Routine 09/03/2024 9:07 AM EST Urticaria Essential hypertension Non morbid obesity Atopic dermatitis, unspecified type Type 2 diabetes mellitus without complication, without long-term current use of insulin (HCC-CMS) Elevated LFTs Other cirrhosis of liver (HCC-CMS) Lower urinary tract symptoms (LUTS) MRI ABDOMEN W/O CONTRAST FLWD BY W/CONTRAST Routine 09/10/2023 3:00 AM EST Other cirrhosis of liver (HCC-CMS) HISTORIC COLONOSCOPY 07/20/2023 3:00 AM EST HEPATITIS A,B,C PANEL Routine 09/16/2019 4:15 PM EST Elevated LFTs ANTIBODY HIV-1&HIV-2 SINGLE RESULT Routine 05/07/2018 2:48 PM EDT Routine general medical examination at a health care facility UPPER GI ENDOSCOPY Routine 05/29/2012 1: 31 PM EST Other cirrhosis of liver (HCC-CMS) from Last 3 Months or Most Recently Relevant to Health Maintenance Results * IMAGING SCANNED DOCUMENT (04/24/2025 3:00 AM EDT) 04/24/2025 3:00 AM EDT Rosanne Corley PA-C SCAN IMAGING Final Result * MICROALBUMIN/CREATININE RATIO, URINE, RANDOM (12/04/2024 10:17 AM EDT) CREATININE, RANDOM URINE 43 20 - 320 mg/dL [facility] MICROALBUMIN 0.9 mg/dL [facility] Comment: Reference Range Not established MICROALBUMIN/CREA TININE RATIO, RANDOM URINE 21 <30 mg/g creat [facility] Comment: The ADA defines abnormalities in albumin excretion as follows: Albuminuria Category Result (mg/g creatinine) Normal to Mildly increased <30 Moderately increased 30-299 Severely increased > OR = 300 The ADA recommends that at least two of three specimens collected within a 3-6 month period be abnormal before considering a patient to be within a diagnostic category. Urine Urine specimen / Unknown 12/04/2024 10:17 AM EDT 12/04/2024 10:18 AM EDT Narrative [facility] - 12/05/2024 4:53 PM EDT FASTING:UNKNOWN us Rosanne Corley PA-C LAB URINE AMBULATORY Final R esult [facility] [address] [address], [employer] [address] [place] [phone] * (ABNORMAL) HEMOGLOBIN GLYCOSYLATED A1C (12/04/2024 10:17 AM EDT) HEMOGLOBIN A1C 7.6(H) <5.7 % [facility] Comment: For someone without known diabetes, a hemoglobin A1c value of 6.5% or greater indicates that they may have diabetes and this should be confirmed with a follow-up test. For someone with known diabetes, a value <7% indicates that their diabetes is well controlled and a value greater than or equal to 7% indicates suboptimal control. A1c targets should be individualized based on duration of diabetes, age, comorbid conditions, and other considerations. Currently, no consensus exists regarding use of hemoglobin A1c for diagnosis of diabetes for children. Blood Blood / Unknown 12/04/2024 1 0:17 AM EDT 12/04/2024 10:18 AM EDT Narrative [email or web address] - 12/05/2024 4:53 PM EDT FASTING:UNKNOWN Rosanne Corley PA-C LAB - BLOOD DRAW Edited Resu lt - Final [email or web address] [address] [place] [id number], [employer] [employer] [address] [place] [phone] * (ABNORMAL) COMPREHENSIVE METABOLIC PANEL (12/04/2024 10:17 AM EDT) GLUCOSE 157(H) 65 - 99 mg/dL [facility] Comment: Fasting reference interval For someone without known diabetes, a glucose value >125 mg/dL indicates that they may have diabetes and this should be confirmed with a follow-up test. UREA NITROGEN (BUN) 16 7 - 25 mg/dL [facility] CREATININE (blood) 0.97 0.70 - 1.35 mg/dL [facility] EGFR 87 > OR = 60 mL/min/1. 73m2 [facility] BUN/CREATININE RATIO SEE NOTE: [facility] Comment: Not Reported: BUN and Creatinine are within reference range. SODIUM 133(L) 135 - 146 mmol/L [facility] [facility] POTASSIUM 5.3 3.5 - 5.3 mmol/L [facility] CHLORIDE 104 98 - 110 mmol/L [facility] CARBON DIOXIDE 22 20 - 32 mmol/L [facility] CALCIUM 9.4 8.6 - 10.3 mg/dL [facility] PROTEIN, TOTAL 8.1 6.1 - 8.1 g/dL [facility] ALBUMIN 4.3 3.6 - 5.1 g/dL [facility] GLOBULIN 3.8(H) 1.9 - 3.7 g/dL (calc) [facility] ALBUMIN/GLOBULI N RATIO 1.1 1.0 - 2.5 (calc) [facility] BILIRUBIN, TOTAL 0.5 0.2 - 1.2 mg/dL [facility] ALKALINE PHOSPHATASE 96 35 - 144 U/L [facility] AST 29 10 - 35 U/L [facility] ALT 18 9 - 46 U/L [facility] Blood Blood / Unknown 12/04/2024 1 0:17 AM EDT 12/04/2024 10:18 AM EDT Narrative [facility] - 12/05/2024 4:53 PM EDT FASTING:UNKNOWN us Rosanne Corley PA-C LAB - BLOOD DRAW Edited Resu lt - Final [facility] [address] [address], [employer] [address] [phone] * (ABNORMAL) LIPID PANEL (09/03/2024 9:07 AM EST) CHOLESTEROL, TOTAL 124 <200 mg/dL [facility] HDL CHOLESTEROL 31(L) > OR = 40 mg/dL [facility] TRIGLYCERIDES 246(H) <150 mg/dL [facility] Comment: If a non-fasting specimen was collected, consider repeat triglyceride testing on a fasting specimen if clinically indicated. Miles et al. J. of Clin. Lipidol. 2015;9:129-169. LDL-CHOLESTEROL 62 99 mg/dL (calc) [facility] Comment: Reference range: <100 Desirable range <100 mg/dL for primary prevention; <70 mg/dL for patients with CHD or diabetic patients with > or = 2 CHD risk factors. LDL-C is now calculated using the Laurie calculation, which is a validated novel method providing better accuracy than the Friedewald equation in the estimation of LDL-C. Rodrigo HUBER et al. MARYEBL. 2013;310(19): 8285-6404 (http://education.Tern/faq/UQO293) CHOL/HDLC RATIO 4.0 <5.0 (calc) [facility] NON-HDL CHOLESTEROL 93 <130 mg/dL (calc) [facility] Comment: For patients with diabetes plus 1 major ASCVD risk factor, treating to a non-HDL-C goal of <100 mg/dL (LDL-C of <70 mg/dL) is considered a therapeutic option. Blood Blood / Unknown 09/03/2024 9 :07 AM EST 09/03/2024 9:08 AM EST Narrative [email or web address] - 09/10/2024 3:21 PM EST PATIENT UNABLE TO VOID; ADVISED TO RETURN FOR COLLECTION. us Rosanne Corley PA-C LAB - BLOOD DRAW Final Resul t [email or web address] [address] [place] [id number], [employer] [address] [place] [phone] * MRI ABDOMEN W/O & W/CONTRAST MATERIAL (09/10/2023 3:00 AM EST) 09/10/2023 3:00 AM EST us Rosanne Corley PA-C IMG MRI Final Result * HISTORIC COLONOSCOPY (07/20/2023 3:00 AM EST) 07/20/2023 3:00 AM EST us Rosanne Colrey PA-C PROCEDURES Edited Resul t - Final * (ABNORMAL) HEPATITIS A,B,C PANEL (09/16/2019 4:15 PM EST) HEPATITIS B SURFACE ANTIBODY NEGATIVE NEGATIVE [facility] HEPATITIS B SURFACE ANTIGEN NEGATIVE NEGATIVE [facility] Comment: Over the counter supplements containing high doses of biotin may interfere with this assay. If interference is suspected, patients shoud be retested after refraining from biotin supplements for 72 hours. HEPATITIS C VIRUS DIAGNOSTIC NEGATIVE NEGATIVE [facility] HEPATITIS B CORE ANTIBODY NEGATIVE NEGATIVE [facility] HEPATITIS A ANTIBODY TOTAL POSITIVE(A) NEGATIVE [facility] Comment: Over the counter supplements containing high doses of biotin may interfere with this assay. If interference is suspected, patients shoud be retested after refraining from biotin supplements for 72 hours. Blood specimen (specimen) Blood / Unknown 09/16/2019 4:15 PM EST 09/16/2019 8:38 PM EST Narrative [facility] - 09/17/2019 11:17 AM EST [employer] [address] Patrol Deputy Sheriff [place] [id number] ORD# [id number] Rosanne Corley PA-C LAB - BLOOD DRAW [place] [address], * HIV-1 & HIV-2 ANTIBODIES (05/07/2018 2:48 PM EDT) HIV 1 AND 2 ANTIBODY SCREEN NEGATIVE NEGATIVE [facility] Comment: This assay is a 4th generation assay allowing for earlier detection of HIV infection by detecting the presence of the HIV-1 p24 antigen as well as the traditional antibodies to HIV type 1 (including group O) and type 2. Use of a 4th generation assay is the current CDC recommendation for HIV screening. Blood specimen (specimen) Blood / Unknown 05/07/2018 2:48 PM EDT 05/07/2018 3:17 PM EDT Narrative [facility] - 05/07/2018 7:44 PM EDT [employer] [address] [place] [address] [place] [id number] ORD# [id number] Rosanne Corley PA-C LAB - BLOOD DRAW Final Resul t [employer] [address] [place] [address], * UPPER GI ENDOSCOPY (05/29/2012 1:31 PM EST) Impressions Rosanne Corley PA-C - 05/29/2012 1:31 PM EST Result type: Surgical Pathology Result date: May 29, 2012 10:54 EST Result status: Auth (Verified) Result title: Performed by: Markel Mtz MD on May 29, 2012 10:54 EST Verified by: Markel Mtz MD on May 29, 2012 10:54 EST Encounter info: [id number], [facility], 05/29/2012 - 05/29/2012 Contributor system: [employer] * Final Report * Patient Name: KIAN BECKMAN Patient : 1960 (Age: 51) Collection Date: 05/29/2012 Accession Date: 05/29/2012 Sign Out Date: 05/31/2012 Tissue Source: 1: GASTRIC BX 2: ESOPHAGEAL BIOPSY 3: RECTAL POLYP Final Diagnosis: 1. Stomach (biopsy): - Gastric mucosa, antral type, with superficial edema and vascularity, reactive foveolar change, surface mucin depletion, chronic inflammation, and focal intestinal metaplasia, consistent with chemical gastritis/gastropathy. - Gastric mucosa, fundic-body type, with reactive change and PPI effect. - No H. Pylori bacteria seen by immunohistochemistry. 2. Esophagus (biopsy): - Gastric mucosa, cardiac (antral) type, with chronic inflammation and reactive change. - Specialized intestinal epithelium suggestive of Vargas's esophagus is not identified. - Squamous mucosa, with rare intraepithelial eosinophil and reactive change. 3. Rectum, polyp (polypectomy): - Hyperplastic polyp. Comment: These immunohistochemistry and/or in-situ hybridization tests were developed and their performance characteristics determined by the immunohistochemistry and in- situ hybridization laboratories at [facility]. They may not have been cleared or approved by the U.S. Food and Drug Administration (FDA). However, the FDA has determined that such clearance or approval is not necessary. These tests are used for clinical purposes. They should not be regarded as investigational or for research. Primary Pathologist:Markel Mtz MD electronically signed out by: Markel Mtz MD / RUDDY Clinical History: Gastroesophageal reflux disease, colorectal cancer screening. EGD-gastritis, island of salmon pink epithelium, rule out Vargas's, colon polyp at rectum. Gross Description: Part 1. Labeled gastric biopsy . Received in formalin are 6 gasca-red soft tissue fragments ranging from 0.2-0.5 cm in greatest dimension which are entirely submitted. 1-6 pieces, x3 with Helicobacter pylori. ([place])* Part 2. Labeled biopsy esophagus . Received in formalin is a 0.3 x 0.3 x 0.2 cm fragment of red-brown soft tissue which is entirely submitted. 1-1 piece, x3. ([place])* Part 3. Labeled rectal polyp . Received in formalin is a 0.4 x 0.3 x 0.3 cm fragment of gasca soft tissue which is entirely submitted. 1-1 piece, x3. ([place])* Phone #: [phone], On-Call Pathologist: [id number] us Provider [place] PROCEDURES Final Result from Last 3 Months or Most Recently Relevant to Health Maintenance Insurance [facility] [place] [id number] Care Teams Management Technician Relationship Specialty Start Date End Date Rosanne Corley PA-C [address] [place] [phone] PCP - General Internal Medicine 09/30/14
--- OUTSIDE RECORDS SUMMARY | 2025-05-09 12:07 | XMS_ITS | Encounter Summary ---
Author Organization [facility] Address [address] [place] [address] Care Team Providers Care Administrative Medical Director Name Role Phone Rosanne Corley PA-C Primary Care Provider Encounter Details Date Type Department Care Team (Late st Contact Info) Description 06/30/2017 Interim Notes [facility] [address] [place] [phone] Glenys Thomas [place], [place] [id number] Social History Tobacco Use Types Packs/Day Years Used Date Smoking Tobacco: Every Day Cigarettes Alcohol Use Standard Drinks/Week Comments Yes 0 (1 standard drink = 0.6 oz pur e alcohol) Sex and Gender Information Value Date Recorded Sex Assigned at Male 05/02/2017 7:05 AM PDT Legal Sex Male 11:36 AM PDT Gender Identity Male 05/02/2017 7:05 AM PDT Sexual Orientation Straight 05/02/2017 7: 05 AM PDT documented as of this encounter Plan of Treatment Not on file documented as of this encounter Visit Diagnoses Not on filedocumented in this encounter Care Teams Administrative Medical Director Relationship Specialty Start Date End Date Rosanne Corley PA-C [address] [place] [phone] PCP - General Internal Medicine 09/30/14 documented as of this encounter
--- OUTSIDE RECORDS SUMMARY | 2025-05-09 12:07 | XMS_ITS | Encounter Summary ---
Author Organization [facility] Address [address] [place] [address] Care Team Providers Care Hogshead Roller Name Role Phone Rosanne Corley PA-C Primary Care Provider Encounter Details Date Type Department Care Team (Late st Contact Info) Description 04/18/2017 Interim Notes [facility] [address] [place] [phone] Erasto Fang MD [phone] [place] [phone] Social History Tobacco Use Types Packs/Day Years [...] on filedocumented in this encounter Care Teams Hogshead Roller Relationship Specialty Start Date End Date Rosanne Corley PA-C [address] [place] [phone] PCP - General Internal Medicine 09/30/14 documented as of this encounter
== END 2025-05-09 09:32 | disposition home or self-care (01) ==
LOC: HO.HMGCX 09:31
PROVIDERS: PCP Physician Assistant; Visit Provider Family Medicine
DX: M79.671 Pain in right foot (principal)
CPT/HCPCS: 73630

== ENCOUNTER 2025-05-09 09:31 | Outpatient (AMB) | payer OTHER, SELFPAY ==
--- NOTE | 2025-05-09 09:46 | MHC.OFFWIV ---
Intake Vital Signs 05/09/25 09:47 05/09/25 11:32 Height 5 ft 6 in Weight 208 lb BMI 33.6 BP 102/70 Blood Pressure Location Lt brachial Position Sitting Respiration 16 Pulse 102 H 103 H Pulse Source Pulse Oximeter Pulse Oximeter Temp 97.9 F Temp Source Oral Pulse Oximetry (%) 93 95 Oxygen Delivery Method Room Air Room Air Intake Visit Reasons: [employer] PILOT right leg swollen 2 weeks painful Intake Note: Pt is here today c/o Rt foot grt toe swollen and painful [id number] Patient Tobacco Use Status: Current everyday Tobacco user Allergies No Known Allergies Allergy (Verified 05/09/25 09:48) Medication List - Last Reconciled 05/09/25 by Lissett Multani MD acetaminophen 1,000 mg PO BID alcohol swabs (Alcohol Prep Pads) pad topical DAILY amlodipine 5 mg PO DAILY aspirin 81 mg PO DAILY blood sugar diagnostic (FreeStyle Lite Strips) As directed clobetasol 0.05% topical BID clopidogrel 75 mg PO DAILY docusate sodium 200 mg PO BEDTIME ezetimibe 10 mg PO DAILY folic acid 1 mg PO DAILY furosemide 20 mg PO DAILY glipizide-metformin 2.5-500 mg 1 tab PO BID hydroxyzine HCl 25 mg PO BEDTIME loratadine 10 mg PO DAILY metoprolol succinate ER 25 mg PO DAILY nitroglycerin mg sublingual pantoprazole 40 mg PO QAM rosuvastatin 20 mg PO BEDTIME semaglutide (Ozempic) 0.5 mg subcut QWEEK spironolactone 25 mg PO DAILY tamsulosin 0.4 mg PO BEDTIME triamcinolone acetonide 0.1% appl topical HPI HPI Comments History of Present Illness Details Patient speaks primarily Ukranian and requested his daughter's boyfriend to translate for him. The patient is a 64-year-old male with a PMH presenting with pain and swelling in the right distal first metatarsal. Approximately two weeks ago, the patient awoke with pain in this area, and he does not recall any related trauma or injury. The pain has remained consistent without significant alleviation from Tylenol, which he is currently using for pain management. Patient's daughter's boyfriend reports that he drinks alcohol and may have had a fall that he is not aware of. He also states that patient has had occasional falls in the past. No previous episodes of similar symptoms have been reported He denies any history of gout. Per daughter boyfriend, patient has a hx of liver cirrhosis, Type 2 DM, GERD, HTN. Denies numbness or tingling of the affected area No fevers or chills. PFSH Social History Patient Tobacco Use Status: Current everyday Tobacco user Review of Systems Const Denies chills and Denies fever(s) Musc Reports arthralgias, Reports joint swelling, Denies numbness and Denies tingling Neuro Denies numbness and Denies tingling Physical Exam Vital Signs: Last Vital Signs Temp 97.9 F 05/09/25 09:47 Pulse 102 H 05/09/25 09:47 Resp 16 05/09/25 09:47 BP 102/70 05/09/25 09:47 Pulse Ox 93 05/09/25 09:47 Oxygen Delivery Method Room Air 05/09/25 09:47 BMI result Body Mass Index 33.6 Const General: cooperative, healthy appearing and well developed; No acute distress or ill appearing Orientation/consciousness: patient oriented x3 Limitations: no limitations Resp Effort & Inspection: able to speak in complete sentences and no respiratory distress Neuro General: patient oriented x3 Extrem Other: Patient noted to have swelling and slight erythema overlying the dorsum of the right distal 1st metatarsal. Tenderness to palpation overlying the distal 1st metatarsal and MTP joint. Cap refill less than 2 seconds. Sensation intact distally. +2 dorsalis pedis pulses. Assessment & Plan Assessment & Plan (1) Right foot pain: Code(s): M79.671 - Pain in right foot Plan: X-ray of the right foot does not appear to show any acute pathology upon personal review. Patient has no personal hx of gout but reports alcohol use (patient reports multiple drinks once weekly) As patient unsure of potential fall/trauma, discussed possible sprain as source of pain. We explored appropriate pain management strategies, selecting topical Voltaren gel and Shine wrap for local application in place of tylenol due to his liver condition and avoiding oral NSAIDS w/ history of GERD on protonix. The patient is advised to apply ice periodically for symptomatic relief. Discussed F/U with PCP if no improvement in symptoms over next 1 week. Medications: New diclofenac sodium 1% (Voltaren Arthritis Pain) apply to right foot twice daily as needed for pain relief 2 grams topical BID 50 grams 0RF Coding Level of Care Code New Pt Level 3 (71443) Diagnoses Right foot pain M79.671
[2025-05-09 09:47] VITALS: BP 102/70; PULSE 102; RESP 16; TEMP 36.6; O2SAT 93; BMI 33.6
--- OUTSIDE RECORDS SUMMARY | 2025-05-09 10:41 | XMS_ITS | Clinical Summary ---
Author Organization [facility] [employer] [facility] Address [address] [place] [address] Phone Care Team Providers Care Tin Tie Machine Operator Automatic Name Role Phone Rosanne Corley Primary Care Provider [phone] Allergies Active Allergy Reactions Criticality Noted Date Comments Cefaclor 10/31/2023 Medications ALBUTEROL SULFATE ORAL Take 90 mcg by mouth as needed. Active amLODIPine (NORVASC) 5 mg tablet Take 1 Tablet by mouth daily. 4 Active atorvastatin (LIPITOR) 80 mg tablet Take 1 Tablet by mouth daily. 4 Active aspirin 81 mg EC tablet Take 81 mg by mouth daily. Active clopidogreL (PLAVIX) 75 mg tablet Take 75 mg by mouth daily. Active furosemide (LASIX) 20 mg tablet Take 20 mg by mouth daily. Active metFORMIN (GLUCOPHAGE) 500 mg tablet Take 500 mg by mouth daily. Active nitroglycerin (NITRODUR) 0.4 mg/hr UNWRAP AND APPLY 1 PATCH TO SKIN EVERY DAY, APPLY FOR NO MORE THAN 12 HOURS IN ANY 24 HOURS 4 Active pantoprazole (PROTONIX) 40 mg EC tablet Take 1 Tablet by mouth daily. 2 Active spironolactone (ALDACTONE) 25 mg tablet Take 1 Tablet by mouth daily. Active tamsulosin (FLOMAX) 0.4 mg 24 hr capsule Take 1 Capsule by mouth daily. 2 Active melatonin 1 mg tablet Take 1 Capsule by mouth at bedtime. 2 Active diclofenac (VOLTAREN) 1 % topical gel Apply 2 g topically 2 (two) times a day. Active fluticasone furoate-vilante roL (Breo Ellipta) 200-25 mcg/dose inhaler Inhale 1 puff by mouth 1 (one) time each day. Active folic acid (FOLVITE) 1 mg tablet Take 1 tablet (1 mg total) by mouth 1 (one) time each day. Active lactulose (CHRONULAC) solution Take 45 mL (30 g total) by mouth 1 (one) time each day. Active glipiZIDE (GLUCOTROL) 10 mg tablet Take 1 tablet (10 mg total) by mouth 2 (two) times a day before meals. Active ezetimibe (ZETIA) 10 mg tablet TAKE 1 TABLET BY MOUTH DAILY 90 tablet 3 5 Active metoprolol succinate (TOPROL-XL) 50 mg 24 hr tablet Take 1 tablet (50 mg total) by mouth 1 (one) time each day. Do not crush or chew. Active Active Problems Problem Noted Date Diagnosed Date Essential hypertension 06/18/2024 Assessment & Plan (09/02/2024 4:56 PM EST): Orders: ECG 12 lead Assessment & Plan (06/28/2024 4:17 PM EST): Controlled. Continue with amlodipine, metoprolol, spironolactone and furosemide. Coronary artery disease invo lving craig coronary artery of craig heart without angina pectoris 06/22/2022 Overview (06/28/2024): 2005 - anterior STEMI with stenting of the LAD artery 2014 - NSTEMI with stable disease on repeat angiogram with medical therapy recommended January 2020 - repeat angiogram following syncopal event showed new RCA lesion status post stenting October 2023 - Regadenoson Nuclear stress test with images showing medium sized, severe intensity infarct at apex with no ischemia Assessment & Plan (09/02/2024 4:56 PM EST): Orders: ECG 12 lead Assessment & Plan (06/28/2024 4:17 PM EST): Catheterization in 2019 showed new RCA lesion status post stenting with patent LAD stent and no other significant disease. Last Nuclear stress test in October 2023 showed large infarct with no ischemia. Last echocardiogram from 2020 showed mildly reduced LV systolic function. Although his stress test was negative for ischemia he is having progressive chest pain and shortness of breath. He had does have a longstanding history of ischemic heart disease. At this point in time based on Dr. Asher's recommendations we should proceed with a heart catheterization. I reviewed the risk, benefits and alternatives of the procedure. He would like to proceed. Continue with aspirin, high dose atorvastatin, amlodipine, clopidogrel, ezetimibe, metoprolol and nitroglycerin. We discussed risk reduction through lifestyle choices including healthy diet, routine exercise and weight management. 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 He should be on AC therapy, but warfarin has fallen off his list. I will get a cardiac MRI.Orders: MR Cardiac Morphology and Function wo and w Contrast; Future Ischemic cardiomyopathy 02/07/2022 Overview (06/28/2024): November 2020 - echocardiogram showed mildly reduced LV systolic function LVEF 45- 50%, akinesis of the mid to distal septal, inferior, apical wall, laminated apical LV thrombus Assessment & Plan (09/02/2024 4:56 PM EST): Orders: ECG 12 lead Transthoracic echocardiogram (TTE) complete with PRN contrast, bubble, strain, and 3D order panel; Future Assessment & Plan (06/28/2024 4:17 PM EST): Last echocardiogram from 2020 showed mildly reduced LV systolic function. He appears compensated on exam. Continue with aspirin, high dose atorvastatin, amlodipine, clopidogrel, ezetimibe, metoprolol, spironolactone and furosemide. We reviewed heart failure management including low-sodium diet, symptom surveillance, daily weights and medication compliance.Orders: MR Cardiac Morphology and Function wo and w Contrast; Future Dyspnea on exertion 07/20/2021 Tobacco use disorder 07/20/2021 Assessment & Plan (09/02/2024 4:56 PM EST): Orders: ECG 12 lead Assessment & Plan (06/28/2024 4:17 PM EST): He continues to smoke and does not want to quit at this time. Verrucous skin lesion 09/04/2017 Encounters Date Type Department Care Team Description 04/23/2025 12:30 PM EDT Ancillary Procedure [facility] - [address] [place] [address] Apical mural thrombus; Ischemic cardiomyopathy from Last 3 Months Surgical History Surgery Date Site/Laterality Comments CARDIAC CATHETERIZATION Done on 08/02/2024 [place] [facility] [place] [facility] indications: Chest pain Medical History Medical History Date Comments Essential hypertension DX:Essent ial hypertension Heart attack (CMS/HCC V24, CMS/HCC V28) DX:Heart attack (HCC) Social History Tobacco Use Types Packs/Day Years Used Date Smoking Tobacco: Every Day Cigarettes Smokeless Tobacco: Never Tobacco Cessation:Ready to Q uit: Not Asked; Counseling Given: Not Answered Comments:6 cigarettes per day Alcohol Use Standard Drinks/Week Comments Yes 0 (1 standard drink = 0.6 oz pur e alcohol) a little bit sometimes Sex and Gender Information Value Date Recorded Sex Assigned at Not on file Legal Sex Male 2:26 PM EST Gender Identity Not on file Sexual Orientation Not on file Obstetrics History Last Filed Vital Signs Vital Sign Reading Time Taken Comments Blood Pressure 154/95 04/23/2025 12:54 PM EDT Pulse 98 09/02/2024 4:10 PM EST Temperature - - Respiratory Rate - - Oxygen Saturation 93% 09/02/2024 4:10 PM EST Inhaled Oxygen Concentration - - Weight 95.7 kg (211 lb) 04/23/2025 12:54 PM EDT Height 167.6 cm (5' 6 ) 04/23/2025 12:54 PM EDT Body Mass Index 34.06 04/23/2025 12:54 PM EDT Plan of Treatment Health Maintenance Due Date Last Done Comments Colorectal Cancer Screening: Colonoscopy 1959 Diabetes: Annual Foot Exam 1969 Diabetes: Annual Retina Eye Exam 1969 Hepatitis A Vaccines (1 of 2 - Risk 2-dose series) 1978 Pneumococcal Vaccine: 50+ Years (1 of 2 - PCV) 1978 RSV Immunization Adult Patients (1 - Risk 50-74 years 1-dose series) 2009 Zoster Vaccines (1 of 2) 2009 Hepatitis B Vaccines (1 of 3 - Risk 3-dose series) 2019 Abdominal Aortic Aneurysm (AAA) Screen 06/22/2022 Hepatitis C Screening 06/22/2022 Medicare Annual Wellness Visit 06/22/2022 Social Influencers of Health Screening 06/22/2022 Depression Screening 2024 Falls Risk Assessment 2024 COVID-19 Vaccine ( season) 2025 Influenza Vaccine (#1) 2025 Diabetes: Blood Sugar Control Test (HGBA1C) 06/06/2025 12/04/2024, 04/11/2023, 04/11/2023 Diabetes: Annual Urine Albumin-Creatinine Ratio (uACR) 12/04/2025 12/04/2024, 04/11/2023, 04/11/2023, Additional history exists Diabetes: Annual GFR (Glomerular Filtration Rate) 12/04/2025 12/04/2024, 06/25/2024, 04/11/2023, Additional history exists Hypertension/CHF/CAD Annual BMP Blood Test 12/04/2025 12/04/2024, 06/25/2024, 04/11/2023, Additional history exists Cholesterol Screening (Lipid Panel) 09/03/2029 09/03/2024, 09/03/2024, 04/11/2023, Additional history exists DTaP,Tdap,and Td Vaccines (2 - Td or Tdap) 09/13/2033 09/13/2023 HIB Vaccines Aged Out No longer eligi ble based on patient's age to complete this topic HPV Vaccines Aged Out No longer eligi ble based on patient's age to complete this topic IPV Vaccines Aged Out No longer eligi ble based on patient's age to complete this topic MMR Vaccines Aged Out No longer eligi ble based on patient's age to complete this topic Meningococcal ACWY Vaccine Aged Out N o longer eligible based on patient's age to complete this topic Meningococcal B Vaccine Aged Out No l onger eligible based on patient's age to complete this topic RSV Immunization Patients Under 20 months Aged Out No longer eligible based on patient's age to complete this topic Varicella Vaccines Aged Out No longer eligible based on patient's age to complete this topic Procedures Procedure Name Priority Date/Time Associated Diagnosis Comments TRANSTHORACIC ECHOCARDIOGRAM (TTE) COMPLETE Routine 04/24/2025 8:36 AM EDT Apical mural thrombus Ischemic cardiomyopathy BASIC METABOLIC PANEL Routine 06/25/2024 3:58 PM EST Coronary artery disease involving craig coronary artery of craig heart, unspecified whether angina present HM URINE ALBUMIN CREATININE RATIO Routine 04/11/2023 HEMOGLOBIN A1C Routine 04/11/2023 LIPID PANEL Routine 04/11/2023 from Last 3 Months or Most Recently Relevant to Health Maintenance Results * (ABNORMAL) TRANSTHORACIC ECHOCARDIOGRAM (TTE) COMPLETE (04/24/2025 8:36 AM EDT) Left Atrium Minor Brickeys 5.9 cm CV PACS Left Atrium Major Brickeys 5.6 cm CV PACS LA Area Sys (A2C) 16 cm2 CV PACS LA Area Sys (A4C) 19 cm2 CV PACS LA Volume (BP) 45 mL CV PACS LA Size 5.1 cm CV PACS RA Area 14.3 cm2 CV PACS RA 2D Volume 30 mL CV PACS AV Mean Gradient 3 mmHg CV PACS Ao VTI 20.5 cm CV PACS AV Peak Raheem 1.2 m/s CV PACS AV Peak Gradient 5 mmHg CV PACS AV Area Continuity Equation 3.1 cm2 CV PACS AV Area Peak Velocity 3.0 cm2 CV PACS Aortic Sinus Valsalva 3.4 cm CV PACS Ascending Aorta 3.7 cm CV PACS IVC Proximal 2.0 cm CV PACS IVSD 1.2(A) 0.6 - 1.0 cm CV PACS LVIDD 5.1 4.2 - 5.8 cm CV PACS LVIDS 3.8 2.5 - 4.0 cm CV PACS LVOT Diameter 2.1 cm CV PACS LVOT Mean Raheem 0.6 m/s CV PACS LVOT Mean Grad 2 mmHg CV PACS LVOT Mean Grad 2 mmHg CV PACS LVOT Peak VTI 18.1 cm CV PACS LVOT Peak Raheem 1.0 m/s CV PACS LVOT Peak Gradient 4 mmHg CV PACS LVPWD 1.2(A) 0.6 - 1.0 cm CV PACS MV E' Tissue Velocity Lateral 7 cm/s CV PACS MV E' Tissue Velocity Septal 8 cm/s CV PACS LVOT Area 3.5 cm2 CV PACS LVOT Stroke Volume 63 mL CV PACS MV Deceleration [place] 2.2 m/s2 CV PACS E Wave Deceleration Time 155 119 - 242 ms CV PACS MV PHT 46 ms CV PACS MV Peak A Raheem 1.04 m/s CV PACS MV Peak E Raheem 0.35 m/s CV PACS MV Mean Gradient 1 mmHg CV PACS MV Mean Gradient 1 mmHg CV PACS MV Mean Gradient 1 mmHg CV PACS MV Mean Gradient 1 mmHg CV PACS MV VTI 18.5 cm CV PACS Mitral Valve Max Velocity 1.1 m/s CV PACS MV Peak Gradient 4 mmHg CV PACS MV Area PHT 4.8 cm2 CV PACS MV Area Continuity Equation 3.4 cm2 CV PACS PV Acceleration Time 116 ms CV PACS PV Acceleration Time 116 ms CV PACS PV Acceleration Time 116 ms CV PACS PV Mean Gradient 1 mmHg CV PACS PV VTI 16.9 cm CV PACS PV Peak Velocity 0.9 m/s CV PACS PV Peak Gradient 3 mmHg CV PACS RV S' 11 cm/s CV PACS TAPSE 15 mm CV PACS TR Peak Velocity 2.13 m/s CV PACS TR Peak Gradient 18 mmHg CV PACS E/E' Ratio Septal 4 CV PACS E/E' Ratio Averaged 5 CV PACS LVOT Stroke Index 31 mL/m2 CV PACS LA Dimension Index 2D 2.5 cm/m2 CV PACS Relative Wall Thickness ratio 0.47 CV PACS LVOT:AV VTI Index 0.88 CV PACS FS 25 % CV PACS LV Mass 2D 241 g CV PACS Ascending Aorta Index 1.80 cm/m2 CV PACS MV VTI:LVOT VTI ratio 1.0 CV PACS LVOT flow 208 mL/s CV PACS RA 2D Volume Index 15 mL/m2 CV PACS REN Index (VTI) 1.49 cm2/m2 CV PACS REN Index (Pk Raheem) 1.46 cm2/m2 CV PACS LVIDD Index 2.49 cm/m2 CV PACS LVIDS Index 1.85 cm/m2 CV PACS AV Velocity Ratio 0.83 CV PACS E/A Ratio 0.3 CV PACS E/E' Ratio Lateral 5 CV PACS LA Volume Index (BP) 22 mL/m2 CV PACS LV Mass Index 2D 118 g/m2 CV PACS BSA 2.11 m2 CV PACS Right Ventricular Peak Systolic Pressure 26 mmHg CV PACS Est. RA Pressure 8 mmHg CV PACS Anatomical Region Laterality Modality Ultrasound Narrative 04/24/2025 12:15 PM EDT Right ventricular systolic function is mildly reduced. Left ventricle was not well visualized. Left ventricle cavity size is normal. There is mild concentric hypertrophy. Systolic function is mildly decreased with an ejection fraction of 45-50%. Regional LV wall motion cannot be accurately assessed. No hemodynamically significant valvular dysfunction There is no prior study available for comparison; technically difficult study Left Ventricle Left ventricle was not well visualized. Left ventricle cavity size is normal. There is mild concentric hypertrophy. Systolic function is mildly decreased with an ejection fraction of 45-50%. Regional LV wall motion cannot be accurately assessed. Mild global LV hypokinesis is present. Right Ventricle Right ventricle was not well visualized. Systolic function is mildly reduced. Left Atrium Left atrium cavity size is normal. Right Atrium Right atrium was not well visualized. Right atrium cavity is normal. IVC/SVC Inferior vena cava structure is normal. RA pressures is estimated to be 8 mmHg (IVC diameter <21 mm and decreases <50% during inspiration). Mitral Valve The leaflets are mildly thickened. There is mild annular calcification. Unable to assess mitral valve regurgitation due to poor Doppler exam. There is no evidence of mitral valve stenosis. Tricuspid Valve The tricuspid valve was not well visualized. Tricuspid valve structure is normal. There is no significant regurgitation. The right ventricular systolic pressure is normal. Aortic Valve The aortic valve is trileaflet. The leaflets are mildly thickened. There is no regurgitation or stenosis. Pulmonic Valve There is no pulmonic valve regurgitation. Ascending Aorta The aorta appears normal in size. Pericardium Pericardium appears normal. There is no pericardial effusion. Study Details Overall the study quality was technically difficult. Unable to administer contrast. Study was difficult due to: patient body habitus. Amilcar Asher MD CV ECHO PROCEDURES Final Resul t * (ABNORMAL) Basic metabolic panel (06/25/2024 3:58 PM EST) Glucose 227(H) 70 - 99 mg/dL [facility] Blood Urea Nitrogen (BUN) 28(H) 8 - 27 mg/dL [facility] Creatinine 1.26 0.76 - 1.27 mg/dL [facility] 1 eGFR 64 >59 mL/min/1.7 3 [facility] 1 BUN/Creatinine Ratio 22 10 - 24 [facility] 1 Sodium 135 134 - 144 mmol/L [facility] 1 Potassium 4.8 3.5 - 5.2 mmol/L [facility] 1 Chloride 101 96 - 106 mmol/L [facility] 1 Carbon Dioxide 17(L) 20 - 29 mmol/L [facility] 1 Calcium 9.0 8.6 - 10.2 mg/dL [facility] 1 Blood Venous blood specimen / Unknown 06/25/2024 3:58 PM EST 06/25/2024 Narrative [facility] 1 - 06/26/2024 8:12 AM EST Performed at: 01 - [facility] [address] [id number] Nailer Machine: Leonora Jackson MD, Phone: [phone] Thiago López SUPERVISORY HISTORIAN LAB BLOOD ORDERABLES Final Result [facility] 1 * Urine Albumin Creatinine Ratio (04/11/2023) Pathologist [facility] Urine Albumin Creatinine Ratio Abstracted Historical Provider HEALTH MAINTENANCE Final Result * Hemoglobin A1c (04/11/2023) Hemoglobin A1C 0.0 % Comment:No interpretation Blood Venous blood specimen / Unknown [facility] Provider LAB BLOOD ORDERABLES Tran l Result * Lipid panel (04/11/2023) LDL/HDL Ratio 0 Comment:No interpretation Triglycerides 0 mg/dL Comment:No interpretation Cholesterol 0 mg/dL Comment:No interpretation HDL 0 mg/dL Comment:No interpretation LDL Cholesterol 0 mg/dL Comment:No interpretation Blood Venous blood specimen / Unknown Historical Provider LAB BLOOD ORDERABLES Tran l Result from Last 3 Months or Most Recently Relevant to Health Maintenance Insurance [facility] MEDIC[facility] Member Subscriber Plan / Payer (Ef fective 2019-Present) Name:VINEET BECKMAN Relation to Subscriber:Self Name:Vineet Beckman Payer ID:[id number] Group ID:[id number] Type:Not on file Address: [place] [address] [place] [address] Care Teams Tin Tie Machine Operator Automatic Relationship Specialty Start Date End Date Rosanne Corley PA [address] [place] [id number] PCP - General Internal Medicine 06/29/17
[2025-05-09 11:32] VITALS: PULSE 103; O2SAT 95
== END 2025-05-09 11:56 | disposition home or self-care (01) ==
PROVIDERS: PCP Physician Assistant; Visit Provider Family Medicine
DX: M79.671 Pain in right foot (principal)

== ENCOUNTER → 2025-05-09 10:22 | Outpatient (BNV) | payer OTHER, SELFPAY | PROVIDERS: PCP Physician Assistant; Visit Provider Radiology Diagnostic Radiology | DX: M79.671 Pain in right foot (principal) | CPT/HCPCS: 73630 ==